=== PATIENT | male | born 2000 | race Caucasian/White ===

== ENCOUNTER 2024-09-23 13:41 | Emergency (ER) | payer SELFPAY ==
--- NOTE | 2024-09-23 13:55 | XR_ITS ---
FINAL REPORT CLINICAL HISTORY: pain FINDINGS: Left shoulder Three views were obtained. There is no fracture or dislocation. The joint spaces appear normal. No soft tissue abnormality is identified. IMPRESSION: No acute process. Reviewed, Interpreted and Dictated by Niko Whitney III, MD Transcribed by Karen Pulido Authenticated and [facility]
[2024-09-23 14:10] VITALS: BP 117/63; PULSE 82; RESP 20; TEMP 36.6; O2SAT 97; BMI 32.5
--- NOTE | 2024-09-23 14:35 | EXP.UTC ---
Discharge Plan Disposition Patient Disposition: Home, Self-Care Condition: Good Prescriptions Prescriptions: New ibuprofen 600 mg tablet 600 mg PO Q6HP PRN (Reason: Moderate Pain) Qty: 20 0RF Referrals Follow up/Referrals: Charlie Frederick DO [Staff Physician] - See instructions Provider,Referral, [Primary Care Provider] - See instructions Activity Restrictions/Add. Instructions Additional Instructions/Restrictions: *RICE, Rest the extremity, Ice 15-20 minutes 3-4 times daily, Compress- wear the willi wrap as discussed as much as possible to help reduce swelling and pain, Elevate the extremity when at rest *Elevate when resting? *Ibuprofen 600-800mg every 6-8 hours as needed for pain an inflammation. If need something more can take Tylenol in between doses of Ibuprofen to help Immediately follow up with your family doctor for new or worsening of symptoms, or no noticeable improvement over the next 3-5 days Call and make appointment with Orthopedics or your Family Doctor for further evaluation and treatment Clinical Impressions Clinical Impression: Acute shoulder pain Stand Alone Forms Stand Alone Forms: Work/School Release Instructions Patient Instructions: DI for Shoulder Pain Print Language Print Language: Macedonian Discharge ED Provider: Alexandra Estevez [facility] [place] General Stated complaint: WC 09/23/24 left shoulder pain Mode of Arrival: Ambulatory Source of Information: Patient Limitations: No Limitations Time Seen by Provider: 09/23/24 14:36 Description of Symptoms (Recalled from Triage Doc. 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 and had to lift his left arm over his head and he felt a pop in the shoulder States he has been told before that he had a small tear in his rotator cuff but had never had it fixed not sure if he may have torn it worse or what he may have done but now if he moves his arm or tries to raise it he has pain that shoots down his arm into his hand Related Data Previous Rx's ?Medication ?Instructions ?Recorded ibuprofen 600 mg tablet 600 mg PO Q6HP PRN Moderate Pain 09/23/24 #20 tabs Allergies Allergy/AdvReac Type Severity Reaction Status Date / Time No Known Allergies Allergy Verified 09/23/24 14:35 Worker's Comp Is this a Worker's Comp case?: No PFSH [facility] Disclaimer: The information contained in this section may have been updated after the patient was seen, as this information can be updated by other users. Social History Smoking Status: Unknown if ever smoked alcohol intake: never current occupational status: employed Travel in the last 8 weeks: None ROS Obtained: Yes All systems reviewed & no additional complaints except as documented and Yes Systems reviewed as appropriate & no additional complaints except as documented ENT Ears, Nose, Mouth, and Throat: Reports system reviewed and no additional complaints, except as documented and Reports as per HPI Cardiovascular Cardiovascular: Reports system reviewed and no additional complaints, except as documented and Reports as per HPI Respiratory Respiratory: Reports system reviewed and no additional complaints, except as documented and Reports as per HPI Gastrointestinal Gastrointestingal: Reports system reviewed and no additional complaints, except as documented and as per HPI Musculoskeletal Musculoskeletal: Reports system reviewed and no additional complaints, except as documented, Reports as per HPI and Reports other Comments: Pain in left shoulder worse when he moves or raises his arm Physical Exam General General appearance: alert and in no apparent distress ENT ENT exam: Present normal exam, normal oropharynx, mucous membranes moist and TM's normal bilaterally Chest Chest inspection: Present normal inspection and symmetric chest wall rise Respiratory Respiratory exam: Present normal lung sounds bilaterally; Absent respiratory distress or wheezes Cardiovascular Cardiovascular exam: Present regular rate, normal rhythm and normal heart sounds Abdominal Exam Abdominal exam: Present soft and normal bowel sounds; Absent distention or tenderness Expanded Upper Extremity Exam Left: Shoulder exam: Present tenderness; Absent swelling, abrasion, laceration, ecchymosis, deformity, crepitus, dislocation or erythema Arm exam: Present normal inspection Elbow exam: Present normal inspection Forearm/Wrist exam: Present normal inspection Hand exam: Present normal inspection Vascular exam: Normal capillary refill and radial pulse Neurological Exam Neurological exam: Present alert, oriented X3 and normal gait Medical Decision Making Medical Records Screening: Per USPSTF and CDC recommendations, given the prevalence of disease in our region, it is our hospital?s policy to screen for HIV and viral Hepatitis for all patients aged 18 and over and those with ongoing risk factors. Stephen Inquiry Pt receiving controlled substance: No Stephen was queried for this patient: No Vital Signs: 09/23/24 14:10 Temperature 97.9 F Temperature Source Oral Pulse Rate [Left Brachial] 82 Respiratory Rate 20 Blood Pressure [Left Arm] 117/63 Blood Pressure Mean [Left Arm] 81 Blood Pressure Source [Left Arm] Automatic Cuff Blood Pressure Position [Left Arm] Sitting 02 Sat by Pulse Oximetry 97 Oxygen Delivery Method Room Air Orders (Tests/Meds): ORDERS Category Date Time Status Shoulder XR left minimum 2 views [XR shoulder LT min 2V Exams 09/23/24 13:55 Taken ] Stat Radiology Data #1: Image(s): Shoulder Image Reviewed: Yes I have reviewed radiologist's interpretation IMPRESSION: No acute process.
[2024-09-23 16:05] VITALS: BP 117/63; PULSE 82; RESP 20; TEMP 36.6; O2SAT 97
== END 2024-09-23 16:07 | disposition home or self-care (01) ==
PROVIDERS: Emergency Provider Nurse Practitioner
DX: M25.512 Pain in left shoulder (principal)
CPT/HCPCS: 73030; 99213; G0381

== ENCOUNTER 2024-12-09 15:50 | Emergency (ER) | payer SELFPAY ==
[2024-12-09 16:07] VITALS: BP 148/81; PULSE 81; RESP 16; TEMP 36.9; O2SAT 100; BMI 30.6
--- NOTE | 2024-12-09 16:50 | ED_ITS ---
<Statement entered by Sujatha Shaw DO - 12/09/24 23:01> I was consulted by the SHELBY, and we discussed the complexity of the problems being addressed. I approved the treatment and management plan for this patient's care in the emergency department, thus performing a substantive portion of the medical decision making. Sujatha Shaw DO Discharge Plan Disposition Patient Disposition: Home, Self-Care Condition: Good Prescriptions Prescriptions: New sulfamethoxazole-trimethoprim [Bactrim DS] 800-160 mg tablet 1 tab PO BID 10 Days Qty: 20 0RF No Action methylprednisolone [Medrol (Bob)] 4 mg tablets,dose pack See Rx Instructions PO PER PKG DIR Qty: 21 0RF Rx Instructions: PO PER PKG DIR ibuprofen 600 mg tablet 600 mg PO Q6HP PRN (Reason: Moderate Pain) Qty: 20 0RF Referrals Follow up/Referrals: Niko Guillory MD [Staff Physician] - See instructions Provider,MD Alvin [Primary Care Provider] - See instructions Activity Restrictions/Add. Instructions Additional Instructions/Restrictions: Please call to make your appointment with general surgery for evaluation of excision at some point of your pilonidal cyst. Packed the wound as we discussed. Please take your antibiotic till is completely gone. Return to ER for any worsening signs or symptoms as needed Clinical Impressions Clinical Impression: Pilonidal cyst Instructions Patient Instructions: DI for Skin Abscess Print Language Print Language: Macedonian Discharge ED Provider: Sujatha Shaw General Adult HPI General Chief complaint: Skin/Abscess/Foreign Body Stated complaint: Cyst on tail bone need drained Time Seen by Provider: 12/09/24 16:01 Mode of Arrival: Ambulatory Source of Information: Patient Limitations: No Limitations Description of Symptoms (Recalled from ER Triage Doc. by RN): pt presents with what appears to be an open pilonidal cyst. The wound is draining foul smelling purulent drainage, it is red and edematous. pt states it has been there approximately 2d but opened sometime this AM. pt reports he had one about a year ago. pt reports the cyst was drained and he was given antibiotics. pt reports the pain is dull and feels like a bee sting. pt states his pain is 8/10. History of Present Illness HPI narrative: Patient presents for evaluation of a recurrent pilonidal cyst. Patient has had a previous pilonidal cyst that was I&D at approximately 4 years ago. He states it is red and swollen and actually spontaneously drained yesterday but continues to hurt. He denies any fever chills hemoptysis hematochezia melena nausea vomit diarrhea. He still able to have bowel movements passing flatus. Related Data Previous Rx's ?Medication ?Instructions ?Recorded ibuprofen 600 mg tablet 600 mg PO Q6HP PRN Moderate Pain 09/23/24 #20 tabs methylprednisolone 4 mg tablets in See Rx Instructions PO PER PKG DIR 09/28/24 a dose pack (Medrol (Bob)) #21 tabs sulfamethoxazole 800 1 tab PO BID 10 days #20 tabs 12/09/24 mg-trimethoprim 160 mg tablet (Bactrim DS) Allergies Allergy/AdvReac Type Severity Reaction Status Date / Time No Known Allergies Allergy Verified 12/09/24 16:32 [facility] Disclaimer: The information contained in this section may have been updated after the patient was seen, as this information can be updated by other users. Social History Smoking Status: Current every day smoker alcohol intake: never current occupational status: employed Travel in the last 8 weeks: None Have you lived/traveled outside [place] in past 30 days?: No Contact w/someone who lives/traveled outside [place] past 30 days?: No Exposure to someone with infectious disease in past 14 days?: No Do you have a fever (greater than 100.4 F or 38 C)?: No Have you tested positive for COVID-19: No Exposed to someone with COVID-19 in past 14 days?: No Do you have a sore throat?: No Do you have a cough?: No Do you have any weakness?: No Do you have any diarrhea?: No Are you experiencing any unusual bleeding?: No Do you have any muscle aches/pain?: No Do you have any abdominal pain?: No Are you experiencing loss of taste or smell?: No Other Medical History Have you received the Pneumonia Vaccine: No ROS Obtained: Yes Systems reviewed as appropriate & no additional complaints except as documented Physical Exam General General appearance: alert and in no apparent distress Respiratory Respiratory exam: Present normal lung sounds bilaterally Cardiovascular Cardiovascular exam: Present regular rate Neurological Exam Neurological exam: Present alert and oriented X3 Medical Decision Making Medical Records Screening: Per USPSTF and CDC recommendations, given the prevalence of disease in our region, it is our hospital?s policy to screen for HIV and viral Hepatitis for all patients aged 18 and over and those with ongoing risk factors. Stephen Inquiry Pt receiving controlled substance: No Vital Signs: 12/09/24 16:07 12/09/24 18:36 Temperature 98.4 F 98.3 F Temperature Source Oral Pulse Rate 80 Pulse Rate [Left] 81 Respiratory Rate 16 16 Blood Pressure 139/85 Blood Pressure [Right Arm] 148/81 H Blood Pressure Mean [Right Arm] 103 Blood Pressure Source [Right Arm] Automatic Cuff Blood Pressure Position [Right Arm] Sitting 02 Sat by Pulse Oximetry 100 Oxygen Delivery Method Room Air Orders (Tests/Meds): ED MEDICATIONS Discontinued Medications Generic Name Dose Route Start Last Admin Trade Name Freq PRN Reason Stop Dose Admin Lidocaine HCl 10 ml 12/09/24 17:08 12/09/24 17:42 Lidocaine 1% 10ml Mdv SUBCUT 12/09/24 17:09 10 ml ONCE ONE Administration Trimethoprim/Sulfamethoxazole 1 each 12/09/24 18:01 12/09/24 18:13 Sulfa/Trimethoprim 1 Tablet PO 12/09/24 18:02 1 each ONCE ONE Administration ORDERS Category Date Time Status Wound Culture and Gram Stain Routine Micro 12/09/24 17:46 Received Medical Decision Narrative: In summary patient is a 24-year-old male who presents to the emergency department for evaluation of pilonidal cyst. Patient is hemodynamically stable with a blood pressure 148/81 with normal sinus rhythm present 16 times a minute satting at high percent on room air upon arrival, afebrile at 98.4. Physical exam is remarkable for a very indurated area at the top of the celestina cleft on the right side. It is fluctuant. There is evidence of form of drainage however nothing can be expressed currently. Is a very exquisitely tender to palpation. It does not extend to the rectum or perineum.. Differential diagnosis includes abscess versus cellulitis. Initial workup was considered with labs and imaging however given the location and physical exam and patient is nontoxic deferred. Given this then initial intervention is topical anesthetic with lidocaine. Area was then I&D with a #11 blade and scant amount of purulence was expressed. Wound was approximately 2 cm deep by 2 cm long. Wound was packed with half-inch gauze. Patient is appropriate for discharge with prescription for Bactrim with first dose given down referral to general surgery for ongoing management and care. Re Procedures Abscess I/D Site: other (Pilonidal cyst of the cleft) Side (if applicable): right Local Anesthetic: lidocaine 1% Amount of anesthesia used (mL): 10 Technique: incised with #11 blade Amount of fluid expressed (mL): 2 Irrigation: No Packing used?: plain Critical Care Critical Care Time Critical Care Time: No
[2024-12-09] MEDS: LIDOCAINE 1% 10ML MDV 10 ML SUBCUT (17:42)
[2024-12-09] MEDS: SULFA/TRIMETHOPRIM 1 TABLET 1 EACH PO (18:13)
[2024-12-09 18:36] VITALS: BP 139/85; PULSE 80; RESP 16; TEMP 36.8
== END 2024-12-09 18:39 | disposition home or self-care (01) ==
PROVIDERS: Emergency Provider Emergency Medicine
DX: L05.91 Pilonidal cyst without abscess (principal)
CPT/HCPCS: 10060; 87070; 87077; 87186; 87205; 99283